=== PATIENT | female | born 1995 | race Caucasian/White ===

== ENCOUNTER 2021-11-07 14:35 | Emergency (ER) | payer SELFPAY ==
[~2021-11-07] VITALS: Ht 158 cm; Wt 54.4 kg
[2021-11-07 16:05] LABS: BASOPHILS % (AUTO) 1 % (0-10); EOSINOPHILS % (AUTO) 0 % (0-10); HEMATOCRIT 37 % (35-52); HEMOGLOBIN 13.2 g/dL (11.5-16.0); LYMPHOCYTES # (AUTO) 2.8 10^3/uL (1.0-4.0); LYMPHOCYTES % (AUTO) 32 % (12-44); MEAN CORPUSCULAR HEMOGLOBIN 32 pg (25-34); MEAN CORPUSCULAR HGB CONC 35 g/dL (32-36); MEAN CORPUSCULAR VOLUME 91 fL (80-99); MEAN PLATELET VOLUME 10.3 fL (9.0-12.2); MONOCYTES # (AUTO) 0.6 10^3/uL (0.0-1.0); MONOCYTES % (AUTO) 7 % (0-12); NEUTROPHILS # (AUTO) 5.2 10^3/uL (1.8-7.8); NEUTROPHILS % (AUTO) 60 % (42-75); PLATELET COUNT 276 10^3/uL (130-400); WHITE BLOOD COUNT 8.7 10^3/uL (4.3-11.0)
[2021-11-07 16:10] LABS: BILIRUBIN,URINE NEGATIVE (NEGATIVE); CLARITY,URINE CLEAR; COLOR,URINE YELLOW; GLUCOSE, URINE (UA) NEGATIVE (NEGATIVE); KETONES,URINE NEGATIVE (NEGATIVE); LEUKOCYTE ESTERASE ,URINE NEGATIVE (NEGATIVE); NITRITE,URINE NEGATIVE (NEGATIVE); PROTEIN,URINE NEGATIVE (NEGATIVE)
[2021-11-07 16:12] LABS: ALBUMIN 3.8 GM/DL (3.2-4.5); POTASSIUM 3.8 MMOL/L (3.6-5.0)
[2021-11-07 16:14] LABS: CALCIUM 9.1 MG/DL (8.5-10.1)
[2021-11-07 16:15] LABS: TOTAL PROTEIN 7.7 GM/DL (6.4-8.2)
[2021-11-07 16:17] LABS: BILIRUBIN,TOTAL 0.3 MG/DL (0.1-1.0)
[2021-11-07 16:19] LABS: CREATININE SERUM 0.61 MG/DL (0.60-1.30)
[2021-11-07 16:19] LABS: BACTERIA,URINE MODERATE /HPF; RBC,URINE 0-2 /HPF; WBC,URINE 0-2 /HPF
--- NOTE | 2021-11-07 16:22 | ED Abdominal Pain ---
General Chief Complaint: Abdominal/GI Problems Stated Complaint: STOMACH PAIN Nursing Triage Note: c/o right sided abdominal pain. states she is , due date is unknown, she states she has not been told yet. lamp was september 09. Source of Information: Patient Exam Limitations: Physical Impairments History of Present Illness Date Seen by Provider: Nov 07, 2021 Time Seen by Provider: 16:20 Initial Comments Patient is a 26-year-old female presents the ED with upper abdominal pain. Upper abdominal pain over the past 3 days described as sharp. Located in her up per abdomen radiates around to the right side of her abdomen. No worsening pain with eating. Has been vomiting for several days. Has been taking Unisom and B6. She states her last menstrual cycle was September 09. She is currently G1, P1. She denies of any dysuria, hematuria, vaginal bleeding or vaginal discharge. She been having some vomiting associated with the pain. No history of previous abdominal surgery. She denies chest pain, shortness of breath, headache, dizziness, visual changes. Allergies and Home Medications Allergies Coded Allergies: No Known Drug Allergies (Unverified , 11/07/21) Patient Home Medication List Home Medication List Reviewed: Yes Metoclopramide HCl (Reglan) 10 Mg Tablet, 10 MG PO Q6H PRN for NAUSEA-1ST LINE Prescribed by: LOUIE SMITH on 11/07/211927 Review of Systems Review of Systems Constitutional: No chills, No diaphoresis, No malaise, No weakness EENTM: No Blurred Vision, No Eye Pain Cardiovascular: Denies Chest Pain, Denies Edema, Denies Irregular Heart Rate Gastrointestinal: Abdominal Pain, Nausea, Vomiting Genitourinary: Denies Burning, Denies Discharge Musculoskeletal: No back pain, No joint pain Skin: No change in color, No change in hair/nails Psychiatric/Neurological: Denies Anxiety, Denies Depressed All Other Systems Reviewed Negative Unless Noted: Yes Past Kmejble-Bobkob-Khlgcc Hx Patient Social History Tobacco Use?: No Use of E-Cig and/or Vaping dev: No Substance use?: No Alcohol Use?: No Pt feels they are or have been: No Immunizations Up To Date Influenza Vaccine Up-to-Date: No; Not Current Past Medical History Last Menstrual Period: Sep 09, 2021 Physical Exam Vital Signs Vital Signs - First Documented 11/07/21 15:29 Temp 36.5 Pulse 87 Resp 18 B/P (MAP) 110/79 (89) Pulse Ox 100 Capillary Refill : Less Than 3 Seconds Height/Weight/BMI Height: '" Weight: lbs. oz. kg; 21.00 BMI Method: General Appearance: WD/WN, no apparent distress HEENT: PERRL/EOMI, normal ENT inspection, TMs normal Neck: non-tender, full range of motion, supple, normal inspection Respiratory: chest non-tender, lungs clear, normal breath sounds Cardiovascular: regular rate, rhythm, no edema, no gallop, no JVD Gastrointestinal: normal bowel sounds, soft, no organomegaly, other (Epigastric tenderness on palpation. Normal bowel sounds throughout. No rebound or guarding.) Extremities: normal range of motion, non-tender, normal inspection, no pedal edema Back: normal inspection, no CVA tenderness, no vertebral tenderness Pelvic: normal external exam, normal adnexa, no cerv. 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, no motor/sensory deficits, alert, normal mood/affect, oriented x 3 Skin: normal color, warm/dry Progress/Results/Core Measures Results/Orders Lab Results Laboratory Tests Test 11/07/21 15:55 11/07/21 16:00 Range/Units White Blood Count 8.7 4.3-11.0 10^3/uL Red Blood Count 4.13 3.80-5.11 10^6/uL Hemoglobin 13.2 11.5-16.0 g/dL Hematocrit 37 35-52 % Mean Corpuscular Volume 91 80-99 fL Mean Corpuscular Hemoglobin 32 25-34 pg Mean Corpuscular Hemoglobin Concent 35 32-36 g/dL Red Cell Distribution Width 12.2 10.0-14.5 % Platelet Count 276 130-400 10^3/uL Mean Platelet Volume 10.3 9.0-12.2 fL Immature Granulocyte % (Auto) 0 % Neutrophils (%) (Auto) 60 42-75 % Lymphocytes (%) (Auto) 32 12-44 % Monocytes (%) (Auto) 7 0-12 % Eosinophils (%) (Auto) 0 0-10 % Basophils (%) (Auto) 1 0-10 % Neutrophils # (Auto) 5.2 1.8-7.8 10^3/uL Lymphocytes # (Auto) 2.8 1.0-4.0 10^3/uL Monocytes # (Auto) 0.6 0.0-1.0 10^3/uL Eosinophils # (Auto) 0.0 0.0-0.3 10^3/uL Basophils # (Auto) 0.0 0.0-0.1 10^3/uL Immature Granulocyte # (Auto) 0.0 0.0-0.1 10^3/uL Sodium Level 136 135-145 MMOL/L Potassium Level 3.8 3.6-5.0 MMOL/L Chloride Level 104 98-107 MMOL/L Carbon Dioxide Level 21 21-32 MMOL/L Anion Gap 11 5-14 MMOL/L Blood Urea Nitrogen 5 L 7-18 MG/DL Creatinine 0.61 0.60-1.30 MG/DL Estimat Glomerular Filtration Rate 126 BUN/Creatinine Ratio 8 Glucose Level 91 70-105 MG/DL Calcium Level 9.1 8.5-10.1 MG/DL Corrected Calcium 9.3 8.5-10.1 MG/DL Total Bilirubin 0.3 0.1-1.0 MG/DL Aspartate Amino Transf (AST/SGOT) 25 5-34 U/L Alanine Aminotransferase (ALT/SGPT) 68 H 0-55 U/L Alkaline Phosphatase 64 40-136 U/L Total Protein 7.7 6.4-8.2 GM/DL Albumin 3.8 3.2-4.5 GM/DL Lipase 29 8-78 U/L Human Chorionic Gonadotropin, Quant [id number] H <5 MIU/ML Urine Color YELLOW Urine Clarity CLEAR Urine pH 6.0 5-9 Urine Specific [place] 1.025 H 1.016-1.022 Urine Protein NEGATIVE NEGATIVE Urine Glucose (UA) NEGATIVE NEGATIVE Urine Ketones NEGATIVE NEGATIVE Urine Nitrite NEGATIVE NEGATIVE Urine Bilirubin NEGATIVE NEGATIVE Urine Urobilinogen 1.0 < = 1.0 MG/DL Urine Leukocyte Esterase NEGATIVE NEGATIVE Urine RBC (Auto) NEGATIVE NEGATIVE Urine RBC 0-2 /HPF Urine WBC 0-2 /HPF Urine Squamous Epithelial Cells 2-5 /HPF Urine Renal Epithelial Cells NONE /HPF Urine Crystals NONE /LPF Urine Bacteria MODERATE H /HPF Urine Casts NONE /LPF Urine Mucus NEGATIVE /LPF Urine Culture Indicated YES Urine Test POSITIVE NEGATIVE My Orders Orders - RICH MCNEILL Ua Culture If Indicated (11/07/21 14:53) Hcg,Qualitative Urine (11/07/21 14:53) Cbc With Automated Diff (11/07/21 15:54) Comprehensive Metabolic Panel (11/07/21 15:54) Lipase (11/07/21 15:54) Hcg,Quantitative (11/07/21 15:54) Abo Rh Type (11/07/21 15:54) Urine Culture (11/07/21 16:00) Us Ob Single Fetus<14 [id number] (11/07/21 17:05) Vital Signs/I&O 11/07/21 11/07/21 15:29 19:19 Temp 36.5 Pulse 87 72 Resp 18 18 B/P (MAP) 110/79 (89) 114/67 Pulse Ox 100 100 Blood Pressure Mean: 89 Departure Communication (PCP) Patient is G1, P1 presents ED with abdominal pain. Last menstrual cycle was September 09. Patient has not established with ENGINEERING MODEL MAKER. Denies having a ultrasound. She presents with upper abdominal pain right side abdominal pain. No urinary symptoms, vaginal bleeding. Refused pelvic exam. She is not concern for sexual transmitted infection. Currently sexually active with 1 partner. Urinalysis was negative for infection but was positive for . Beta quant near 138,000. Patient with a normal white blood count, liver enzymes, pancreatic enzymes. Patient is normotensive. She is not diabetic. No known medical problems. Has been taking B6 and Unisom for nausea and vomiting that was prescribed from the clinic. She has had vomiting throughout the . Pain over the past 3 days. Denies chest pain, shortness of breath. She is not tachycardic or hypoxic. Due to no previous ultrasound and elevated beta quant rule out potential ectopic . Ultrasound did show intrauterine 8 weeks. No evidence of acute abnormality. Pain appears to be more upper abdomen on palpation. Due to normal white blood count and liver enzymes would not suspect acute cholecystitis. May have some biliary colic versus gastritis versus GERD. She does report some burning sensation to the chest. Discussed Tums. I discussed diet changes. She is requesting a different nausea medication will discharge with Reglan. Provided ENGINEERING MODEL MAKER follow-up. Blood type Rh+. Return precaution were discussed with patient. She had no current pain at discharge. Return precautions were discussed with patient. Difficulty obtaining history secondary to the language barrier. Academic Computing Director was used but was difficult to obtain information regarding patient's history and current symptoms Impression Primary Impression: Abdominal pain Additional Impression: Disposition: 01 HOME, SELF-CARE Condition: Stable Departure-Patient Inst. Decision time for Depature: 19:07 Referrals: ELIER CADENA DO Patient Instructions: Care Add. Discharge Instructions: Recommend following up with ENGINEERING MODEL MAKER. May consider recommend Tums. If any worsening symptoms return back to ED for further evaluation All discharge instructions reviewed with patient and/or family. Voiced understanding. Scripts Metoclopramide HCl (Reglan) 10 Mg Tablet 10 MG PO Q6H PRN for NAUSEA-1ST LINE, #8 TAB Prov: RICH MCNEILL 11/07/21 RICH MCNEILL Nov 07, 2021 16:22
--- NOTE | 2021-11-07 18:50 | Diagnostic Imaging Report ---
PROCEDURE: US OB single fetus <14 wks. TECHNIQUE: Multiple real-time grayscale images were obtained over the gravid uterus in various projections. INDICATION: Pelvic pain. FINDINGS: There is a single living intrauterine . Embryo crown-rump length is 2.2 cm corresponding to gestational age of 8 weeks and 6 days. heartbeat was recorded at 167 bpm. Placenta is anterior. Amniotic fluid volume is normal. Ovaries appear normal. There are no pathologic masses or fluid collections in the adnexa. There is no free fluid. IMPRESSION: Single living intrauterine with estimated gestational age of 8 weeks and 6 days +/- 6 days. Dictated by: Dictated on workstation # [id number]
[2021-11-07 19:19] VITALS: BP 114/67
[2021-11-07] MEDS ORDERED: METO-310 PO (19:28)
== END 2021-11-07 19:31 | disposition home or self-care (01) ==
LOC: ER 14:39
DX: O26.891 Other specified pregnancy related conditions, first trimester (principal); R10.13 Epigastric pain; Z3A.08 8 weeks gestation of pregnancy
CPT/HCPCS: 36415; 76801; 80053; 81000; 83690; 84702; 84703; 85025; 86900; 86901; 87088

== ENCOUNTER 2022-01-14 09:27 | Emergency (ER) | payer OTHER ==
[~2022-01-14] VITALS: Ht 157.5 cm; Wt 60.7 kg
[~2022-01-14 09:27] MED LIST: METO-310 PO
[2022-01-14 10:14] LABS: BILIRUBIN,URINE NEGATIVE (NEGATIVE); CLARITY,URINE CLEAR; COLOR,URINE ORANGE; GLUCOSE, URINE (UA) NEGATIVE (NEGATIVE); KETONES,URINE NEGATIVE (NEGATIVE); LEUKOCYTE ESTERASE ,URINE NEGATIVE (NEGATIVE); NITRITE,URINE NEGATIVE (NEGATIVE); PROTEIN,URINE NEGATIVE (NEGATIVE)
[2022-01-14 10:33] LABS: BACTERIA,URINE MODERATE /HPF; RBC,URINE 0-2 /HPF; SQUAMOUS EPITHELIAL CELL,UR >50 /HPF; WBC,URINE 0-2 /HPF
[2022-01-14] MEDS ORDERED: fentaNYL INJ 100 MCG/2 ML AMP IVP ONE (13:00)
[2022-01-14 13:05] LABS: BASOPHILS % (AUTO) 0 % (0-10); EOSINOPHILS # (AUTO) 0.1 10^3/uL (0.0-0.3); EOSINOPHILS % (AUTO) 1 % (0-10); HEMATOCRIT 35 % (35-52); LYMPHOCYTES % (AUTO) 22 % (12-44); MEAN CORPUSCULAR HEMOGLOBIN 32 pg (25-34); MEAN CORPUSCULAR HGB CONC 34 g/dL (32-36); MEAN CORPUSCULAR VOLUME 93 fL (80-99); MEAN PLATELET VOLUME 11.1 fL (9.0-12.2); MONOCYTES # (AUTO) 0.7 10^3/uL (0.0-1.0); MONOCYTES % (AUTO) 8 % (0-12); NEUTROPHILS # (AUTO) 6.2 10^3/uL (1.8-7.8); NEUTROPHILS % (AUTO) 69 % (42-75); PLATELET COUNT 338 10^3/uL (130-400)
[2022-01-14 13:13] LABS: ALBUMIN 3.5 GM/DL (3.2-4.5); BILIRUBIN,TOTAL 0.3 MG/DL (0.1-1.0); CALCIUM 9.2 MG/DL (8.5-10.1); CREATININE SERUM 0.6 MG/DL (0.60-1.30); POTASSIUM 3.6 MMOL/L (3.6-5.0); TOTAL PROTEIN 7.2 GM/DL (6.4-8.2)
--- NOTE | 2022-01-14 14:05 | ED Abdominal Pain ---
General Chief Complaint: Abdominal/GI Problems Stated Complaint: ABD PAIN 18 WKS PREG Nursing Triage Note: Pt is 17 weeks gestation w/ low abd/pelvic pain since 0630 w/ urinary urgency and feels like she can't go very much at a time. Source of Information: Patient, Advertising Sales Agent Exam Limitations: No Limitations History of Present Illness Date Seen by Provider: Jan 14, 2022 Time Seen by Provider: 10:09 Initial Comments This 26-year-old young lady is a 1 para 0 at 19 weeks and 1 day gestational age. She presents to the emergency room primarily complaining of left lower quadrant pain and back pain. Swedish is her primary language and the chief crna line is used for the communication. She complains mainly of lower abdominal pain for the past couple of days but is actually more tender in the right upper quadrant and epigastrium. She reports movement today and heart tones were reassuring by Doppler in the 150s per nursing staff. Dr. Wilder provides her care at the [facility] clinic. She denies any vaginal discharge, bleeding, or pain. She denies constipation or diarrhea. She has no vomiting but has had a little nausea. She does not state any urinary complaints to this provider. Allergies and Home Medications Allergies Coded Allergies: No Known Drug Allergies (Unverified , 11/07/21) Patient Home Medication List Home Medication List Reviewed: Yes Metoclopramide HCl (Reglan) 10 Mg Tablet, 10 MG PO Q6H PRN for NAUSEA-1ST LINE Prescribed by: LOUIE SMITH on 11/07/211927 Ondansetron (Ondansetron Odt) 4 Mg Tab.rapdis, 4 MG SL Q4H PRN for NAUSEA/VOMITING Prescribed by: CLEMENTE HERNANDEZ on 01/14/22 1414 Review of Systems Review of Systems Constitutional: no symptoms reported EENTM: No Symptoms Reported Respiratory: No Symptoms Reported Cardiovascular: No Symptoms Reported Gastrointestinal: See HPI Genitourinary: See HPI Musculoskeletal: no symptoms reported Skin: no symptoms reported Psychiatric/Neurological: No Symptoms Reported Endocrine: No Symptoms Reported Hematologic/Lymphatic: No Symptoms Reported Past Amgbton-Hrunjt-Mpcupu Hx Patient Social History Tobacco Use?: No Use of E-Cig and/or Vaping dev: No Substance use?: No Alcohol Use?: No Pt feels they are or have been: No Past Medical History Surgeries: No Respiratory: No Cardiac: No Neurological: No : Yes Expected Date of Delivery: Jun 19, 2022 Last Menstrual Period: Sep 10, 2021 Reproductive Disorders: No Genitourinary: No Gastrointestinal: No Musculoskeletal: No Endocrine: No HEENT: No Cancer: No Psychosocial: No Physical Exam Vital Signs Vital Signs - First Documented 01/14/22 09:41 Temp 36.6 Pulse 94 Resp 22 B/P (MAP) 102/63 (76) Pulse Ox 99 O2 Delivery Room Air Capillary Refill : Less Than 3 Seconds Height/Weight/BMI Height: '" Weight: lbs. oz. kg; 24.00 BMI Method: General Appearance: WD/WN, no apparent distress HEENT: PERRL/EOMI, normal ENT inspection Neck: normal inspection Respiratory: lungs clear, normal breath sounds, no respiratory distress Cardiovascular: regular rate, rhythm, no edema, no murmur Gastrointestinal: normal bowel sounds, soft, tenderness (Minimal tenderness in the suprapubic region. Fundus nontender. 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, no motor/sensory deficits, alert, normal mood/affect, oriented x 3 Skin: normal color, warm/dry Progress/Results/Core Measures Results/Orders Lab Results Laboratory Tests Test 01/14/22 09:45 01/14/22 10:00 Range/Units Urine Color ORANGE Urine Clarity CLEAR Urine pH 6.0 5-9 Urine Specific [place] >=1.030 1.016-1.022 Urine Protein NEGATIVE NEGATIVE Urine Glucose (UA) NEGATIVE NEGATIVE Urine Ketones NEGATIVE NEGATIVE Urine Nitrite NEGATIVE NEGATIVE Urine Bilirubin NEGATIVE NEGATIVE Urine Urobilinogen 0.2 < = 1.0 MG/DL Urine Leukocyte Esterase NEGATIVE NEGATIVE Urine RBC (Auto) NEGATIVE NEGATIVE Urine RBC 0-2 /HPF Urine WBC 0-2 /HPF Urine Squamous Epithelial Cells >50 H /HPF Urine Crystals NONE /LPF Urine Bacteria MODERATE H /HPF Urine Casts NONE /LPF Urine Mucus MODERATE H /LPF Urine Culture Indicated YES White Blood Count 9.0 4.3-11.0 10^3/uL Red Blood Count 3.79 L 3.80-5.11 10^6/uL Hemoglobin 12.0 11.5-16.0 g/dL Hematocrit 35 35-52 % Mean Corpuscular Volume 93 80-99 fL Mean Corpuscular Hemoglobin 32 25-34 pg Mean Corpuscular Hemoglobin Concent 34 32-36 g/dL Red Cell Distribution Width 13.4 10.0-14.5 % Platelet Count 338 130-400 10^3/uL Mean Platelet Volume 11.1 9.0-12.2 fL Immature Granulocyte % (Auto) 1 % Neutrophils (%) (Auto) 69 42-75 % Lymphocytes (%) (Auto) 22 12-44 % Monocytes (%) (Auto) 8 0-12 % Eosinophils (%) (Auto) 1 0-10 % Basophils (%) (Auto) 0 0-10 % Neutrophils # (Auto) 6.2 1.8-7.8 10^3/uL Lymphocytes # (Auto) 2.0 1.0-4.0 10^3/uL Monocytes # (Auto) 0.7 0.0-1.0 10^3/uL Eosinophils # (Auto) 0.1 0.0-0.3 10^3/uL Basophils # (Auto) 0.0 0.0-0.1 10^3/uL Immature Granulocyte # (Auto) 0.1 0.0-0.1 10^3/uL Sodium Level 135 135-145 MMOL/L Potassium Level 3.6 3.6-5.0 MMOL/L Chloride Level 105 98-107 MMOL/L Carbon Dioxide Level 20 L 21-32 MMOL/L Anion Gap 10 5-14 MMOL/L Blood Urea Nitrogen 3 L 7-18 MG/DL Creatinine 0.60 0.60-1.30 MG/DL Estimat Glomerular Filtration Rate 127 BUN/Creatinine Ratio 5 Glucose Level 86 70-105 MG/DL Calcium Level 9.2 8.5-10.1 MG/DL Corrected Calcium 9.6 8.5-10.1 MG/DL Total Bilirubin 0.3 0.1-1.0 MG/DL Aspartate Amino Transf (AST/SGOT) 19 5-34 U/L Alanine Aminotransferase (ALT/SGPT) 25 0-55 U/L Alkaline Phosphatase 66 40-136 U/L C-Reactive Protein High Sensitivity 0.82 H 0.00-0.50 MG/DL Total Protein 7.2 6.4-8.2 GM/DL Albumin 3.5 3.2-4.5 GM/DL Lipase 17 8-78 U/L Micro Results Microbiology 01/14/22 Urine Culture - Final, Complete Mixed Bacterial Angela My Orders Orders - CLEMENTE DAO MD Ua Culture If Indicated (01/14/22 10:09) Urine Culture (01/14/22 09:45) Cbc With Automated Diff (01/14/22 12:53) Comprehensive Metabolic Panel (01/14/22 12:53) Hs C Reactive Protein (01/14/22 12:53) Lipase (01/14/22 12:53) Fentanyl Inj (Sublimaze Injection) (01/14/22 13:00) Us Gallbladder [id number] (01/14/22 ) Us Ob Preg Late(14-40wks)[id number] (01/14/22 12:53) Medications Given in ED Vital Signs/I&O 01/14/22 01/14/22 01/14/22 09:41 10:45 14:45 Temp 36.6 Pulse 94 83 107 Resp 22 18 B/P (MAP) 102/63 (76) 97/67 103/58 Pulse Ox 99 99 98 O2 Delivery Room Air Room Air Room Air Blood Pressure Mean: 77 Progress Progress Note : Progress Note Pain was already improving prior to ultrasound. A very small dose of fentanyl was given for pain control during ultrasound. Ultrasound demonstrated gallbladder sludge and stones without definite acute cholecystitis. Vital signs and labs did not correlate with acute cholecystitis. Case was discussed with Ty Flores and patient has been referred to him in the clinic. I discussed the instructions via chief crna and answered questions. Obstetrical ultrasound was reassuring with no acute pathology identified. See discharge instructions for further discussion. Symptom management was also discussed with Dr. Wilder. He preferred the patient adhere to Tylenol only for pain control at this time. Diagnostic Imaging Diagonstic Imaging: Ultrasound Plain Films/CT/US/NM/MRI: abdomen Comments Gallbladder ultrasound discussed with the sand technician. There was no definite acute cholecystitis but gallstones and sludge were noted. Wall thickening did not meet criteria for cholecystitis. See report below: NAME: ALANIZSAL GRIFFITHS [facility] REC#: [id number] PT STATUS: DEP ER : 1995 PHYSICIAN: CLEMENTE DAO MD ADMIT DATE: 01/14/22/ER Signed Date of Exam:01/14/22 US GALLBLADDER [id number] PROCEDURE: US Gallbladder. TECHNIQUE: Multiple real-time grayscale images were obtained over the right upper quadrant in various projections. INDICATION: Abdominal pain. FINDINGS: Liver is normal in size at 14 cm. The portal vein is patent and shows normal direction of flow. No discrete liver mass is identified. Echogenic foci within the gallbladder are noted with shadowing, suggestive of stones. Gallbladder wall is borderline in thickness at 3 mm. No pericholecystic fluid is identified. Pancreas is obscured. Aorta is nonaneurysmal. IVC is patent. Right kidney is without calculi or hydronephrosis. IMPRESSION: Cholelithiasis with borderline gallbladder wall thickening. Acute cholecystitis cannot be entirely excluded. If there is concern for acute cholecystitis, HIDA scan may be useful for further evaluation. Dictated by: Dictated on workstation # [id number] Dict: 01/14/22 1445 Trans: 01/14/22 1555 [id number] Interpreted by: ALEIDA COCHRAN MD Electronically signed by: ALEIDA COCHRAN MD 01/14/22 1555 Diagonstic Imaging: Ultrasound Plain Films/CT/US/NM/MRI: pelvis Comments Obstetrical ultrasound discussed with provider. See report below: NAME: SAL MARQUEZ REC#: [id number] PT STATUS: DEP ER : 1995 PHYSICIAN: CLEMENTE DAO MD ADMIT DATE: 01/14/22/ER Signed Date of Exam:01/14/22 US OB PREG LATE(14-40WKS)[id number] INDICATION: Abdominal pain, 18 weeks . TECHNIQUE: Multiple real-time grayscale images were obtained over the gravid uterus. COMPARISON: None. FINDINGS: There is a gonzalez viable IUP in cephalic position with heart tones at 146 BPM. The measurements correlate with an average age 19 weeks 1 day. Sonographic date of confinement is 06/09/2022. Amniotic fluid volume is normal. The placenta is anterior. There is no abruption or previa. The caudal tip of the placenta is by 4.8 cm from the closed os. Cervix was nondilated and measured 3.2 cm in length. IMPRESSION: Gonzalez viable IUP with no pathological finding identified. Biometrical measurements are as follows: Biparietal 4.36 cm, age 19 weeks 2 days. Head circumference 16.04 cm, age 19 weeks 0 days. Abdominal circumference 13.30 cm, age 18 weeks 6 days. Femur length 2.98 cm, age 19 weeks 2 days. Sonographic estimate age: 19 weeks 1 days. Sonographic estimated date of delivery: 06/09/2022. Estimated Weight: 267 gm (+/- 39 gm). LMP percentile: 70%. heart rate: 146 beats per minute. number: 1 of 1. Dictated by: Dictated on workstation # [id number] Dict: 01/14/22 1530 Trans: 01/14/22 1649 [id number] Interpreted by: MARIA VICTORIA YING Electronically signed by: MARIA VICTORIA YING 01/14/22 0009 Departure Impression Primary Impression: Gallstones Additional Impressions: Generalized abdominal pain Qualified Codes: Z3A.19 - 19 weeks gestation of Disposition: 01 HOME, SELF-CARE Condition: Stable Departure-Patient Inst. Referrals: [facility][1]/QUENTIN STERLING DO NO,LOCAL PHYSICIAN (PCP) Primary Care Physician Patient Instructions: Gallstones Add. Discharge Instructions: You have gallstones and sludge in your gallbladder. This is likely causing most of your pain. Eating a diet low in fats, oils, and dairy is very important to control your symptoms. Hopefully you will not need to have surgery for your gallbladder during . Please see Dr. Flores (general surgeon) to talk about options and a plan for treating your gallstones. Dr. Flores's contact information is below. Please call his office to schedule an appointment as soon as possible. Tell them this is a follow-up from the emergency room. You may use Zofran (ondansetron) as prescribed for nausea if needed. Use Tylenol (acetaminophen) up to 1000 mg every 6 hours as needed for pain. Return to the emergency room if you have worsening symptoms despite following these instructions. All discharge instructions reviewed with patient and/or family. Voiced understanding. Scripts Ondansetron (Ondansetron Odt) 4 Mg Tab.rapdis 4 MG SL Q4H PRN for NAUSEA/VOMITING, #10 TAB Prov: CLEMENTE DAO MD 01/14/22 Copy Copies To 1: QUENTIN FLORES DO Copies To 2: [facility][1]/CLEMENTE BOBBY MD Jan 14, 2022 14:05
[2022-01-14] MEDS ORDERED: ONDA4TAB11 SL (14:14)
[2022-01-14 14:45] VITALS: BP 103/58
--- NOTE | 2022-01-14 14:51 | Diagnostic Imaging Report ---
PROCEDURE: US Gallbladder. TECHNIQUE: Multiple real-time grayscale images were obtained over the right upper quadrant in various projections. INDICATION: Abdominal pain. FINDINGS: Liver is normal in size at 14 cm. The portal vein is patent and shows normal direction of flow. No discrete liver mass is identified. Echogenic foci within the gallbladder are noted with shadowing, suggestive of stones. Gallbladder wall is borderline in thickness at 3 mm. No pericholecystic fluid is identified. Pancreas is obscured. Aorta is nonaneurysmal. IVC is patent. Right kidney is without calculi or hydronephrosis. IMPRESSION: Cholelithiasis with borderline gallbladder wall thickening. Acute cholecystitis cannot be entirely excluded. If there is concern for acute cholecystitis, HIDA scan may be useful for further evaluation. Dictated by: Dictated on workstation # [id number]
--- NOTE | 2022-01-14 15:37 | Diagnostic Imaging Report ---
INDICATION: Abdominal pain, 18 weeks . TECHNIQUE: Multiple real-time grayscale images were obtained over the gravid uterus. COMPARISON: None. FINDINGS: There is a cabrera viable IUP in cephalic position with heart tones at 146 BPM. The measurements correlate with an average age 19 weeks 1 day. Sonographic date of confinement is 06/09/2022. Amniotic fluid volume is normal. The placenta is anterior. There is no abruption or previa. The caudal tip of the placenta is by 4.8 cm from the closed os. Cervix was nondilated and measured 3.2 cm in length. IMPRESSION: Cabrera viable IUP with no pathological finding identified. Biometrical measurements are as follows: Biparietal 4.36 cm, age 19 weeks 2 days. Head circumference 16.04 cm, age 19 weeks 0 days. Abdominal circumference 13.30 cm, age 18 weeks 6 days. Femur length 2.98 cm, age 19 weeks 2 days. Sonographic estimate age: 19 weeks 1 days. Sonographic estimated date of delivery: 06/09/2022. Estimated Weight: 267 gm (+/- 39 gm). LMP percentile: 70%. heart rate: 146 beats per minute. number: 1 of 1. Dictated by: Dictated on workstation # [id number]
== END 2022-01-14 14:45 | disposition home or self-care (01) ==
LOC: EDUNIT# 09:27 → ER 09:29
DX: O99.612 Diseases of the digestive system complicating pregnancy, second trimester (principal); K80.80 Other cholelithiasis without obstruction; Z28.310 Unvaccinated for COVID-19; Z3A.19 19 weeks gestation of pregnancy
CPT/HCPCS: 36415; 76705; 76805; 80053; 81000; 83690; 85025; 86141; 87088

== ENCOUNTER 2022-06-12 12:15 | Outpatient (CLI) | payer OTHER ==
[~2022-06-12 12:15] MED LIST changes: +ONDA4TAB11 SL
[2022-06-12] MEDS ORDERED: PREN-142 PO (12:58)
[2022-06-12 13:02] VITALS: BP 123/77
[2022-06-12 13:35] LABS: BILIRUBIN,URINE NEGATIVE (NEGATIVE); CLARITY,URINE CLEAR; COLOR,URINE ORANGE; GLUCOSE, URINE (UA) NEGATIVE (NEGATIVE); KETONES,URINE NEGATIVE (NEGATIVE); LEUKOCYTE ESTERASE ,URINE NEGATIVE (NEGATIVE); NITRITE,URINE NEGATIVE (NEGATIVE); PH,URINE 6.5 (5-9); PROTEIN,URINE 1+ (NEGATIVE)
[2022-06-12 13:55] LABS: BACTERIA,URINE FEW /HPF; WBC,URINE 0-2 /HPF
--- NOTE | 2022-06-13 08:10 | Physician Query-Final Dx ---
SCOT,06/13/22 0810: Clinic Account Progress/Dx Physician Query: Please give diagnosis Please include # weeks gestation Date of Service Jun 12, 2022 at 12:15 GAGE LUX DO 06/13/22 0847: Clinic Account Progress/Dx DIAGNOSIS: Diagnosis 39 week GA contractions, not in active labor SCOT,JunJun 13, 2022 08:10 GAGE LUX DO Jun 13, 2022 08:47
== END 2022-06-12 16:10 | disposition home or self-care (01) ==
LOC: WSo 12:15 → LDRP 12:16 → WSo 16:10
PROVIDERS: ATTEND Family Medicine
DX: O62.9 Abnormality of forces of labor, unspecified (principal); Z3A.39 39 weeks gestation of pregnancy
CPT/HCPCS: 81000; 87088; 99213

== ENCOUNTER 2022-06-13 06:04 | Inpatient (IN) | payer OTHER ==
[2022-06-13] VITALS (55 sets, daily range): BP systolic 89–142; BP diastolic 51–102
[~2022-06-13] VITALS: Ht 160 cm; Wt 74.0 kg
[~2022-06-13 06:04] MED LIST changes: +PREN-142 PO
[2022-06-13] MEDS ORDERED: D5 LR IV SOLUTION 1,000 ML IV ONE (06:43)
[2022-06-13] MEDS: D5 LR IV SOLUTION 1,000 ML IV SCH ×2 (06:50→14:20)
[2022-06-13 06:51] LABS: BILIRUBIN,URINE NEGATIVE (NEGATIVE); CLARITY,URINE CLOUDY; COLOR,URINE YELLOW; GLUCOSE, URINE (UA) NEGATIVE (NEGATIVE); KETONES,URINE NEGATIVE (NEGATIVE); LEUKOCYTE ESTERASE ,URINE NEGATIVE (NEGATIVE); NITRITE,URINE NEGATIVE (NEGATIVE); PH,URINE 6.5 (5-9); PROTEIN,URINE 1+ (NEGATIVE)
[2022-06-13 07:10] LABS: RBC,URINE >100 /HPF
[2022-06-13 07:11] LABS: BACTERIA,URINE TRACE /HPF; WBC,URINE 0-2 /HPF
[2022-06-13 07:25] LABS: BASOPHILS % (AUTO) 0 % (0-10); EOSINOPHILS % (AUTO) 0 % (0-10); HEMATOCRIT 38 % (35-52); LYMPHOCYTES # (AUTO) 2.2 10^3/uL (1.0-4.0); LYMPHOCYTES % (AUTO) 29 % (12-44); MEAN CORPUSCULAR HEMOGLOBIN 31 pg (25-34); MEAN CORPUSCULAR HGB CONC 35 g/dL (32-36); MEAN CORPUSCULAR VOLUME 90 fL (80-99); MEAN PLATELET VOLUME 12.5 fL (9.0-12.2); MONOCYTES # (AUTO) 0.6 10^3/uL (0.0-1.0); MONOCYTES % (AUTO) 7 % (0-12); NEUTROPHILS # (AUTO) 4.8 10^3/uL (1.8-7.8); NEUTROPHILS % (AUTO) 63 % (42-75); PLATELET COUNT 261 10^3/uL (130-400); WHITE BLOOD COUNT 7.7 10^3/uL (4.3-11.0)
[2022-06-13] MEDS ORDERED: fentaNYL 2 mcg/ml BUPIVA 0.125 100 ML ONE (07:28)
[2022-06-13] MEDS ORDERED: MINERAL OIL 30 ML UDC TOP PRN (07:30)
[2022-06-13] MEDS ORDERED: LIDOCAINE PF 2% 5 ML (XYLOCAINE) VIAL ONE (08:12)
[2022-06-13] MEDS ORDERED: fentaNYL INJ 100 MCG/2 ML AMP ONE (08:12)
--- NOTE | 2022-06-13 08:15 | History & Physical-OB ---
OB - Chief Complaint & HPI Date/Time Date of Admission: Date of Admission: Jun 13, 2022 at 06:43 Date seen by a Provider: Jun 13, 2022 Time Seen by a Provider: 07:10 Chief Complaint/History OB-Reason for Admission/Chief: Onset of Labor Hx : 2 Hx Para: 0 Expected Date of Delivery: Jun 17, 2022 Gestational Age in Weeks: 39 Gestational Age in Days: 3 Admission Nurse Assessment Rev: Yes History of Labs GBS negative Allergies and Home Medications Allergies Coded Allergies: No Known Drug Allergies (Unverified , 11/07/21) Patient Home Medication List Home Medication List Reviewed: Yes Vit No.124/Iron/FA ( Vitamin Tablet) 27 Mg Iron-800 Mcg Tablet, 1 EACH PO, (Reported) Entered as Reported by: JESSENIA ROMERO on 06/12/22 1258 Discontinued Medications Metoclopramide HCl (Reglan) 10 Mg Tablet, 10 MG PO Q6H PRN for NAUSEA-1ST LINE Discontinued Reason: No Longer Taking Prescribed by: LOUIE SMITH on 11/07/21 1928 Ondansetron (Ondansetron Odt) 4 Mg Tab.rapdis, 4 MG SL Q4H PRN for NAUSEA/VOMITING Discontinued Reason: No Longer Taking Prescribed by: CLEMENTE HERNANDEZ on 01/14/22 1414 OB - History Hx of Present Care: Yes Ultrasounds: Normal mid trimester US Obstetrical Complications: None Medical Complications: None Patient Past Medical History no chronic medical problems Social History/Family History 2nd Hand Smoke Exposure: No Immunizations Influenza Vaccine Up-to-Date: Yes; Up-to-Date COVID19 Vaccine 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[place] OB - Admission Exam Physical Exam Vitals: Vital Signs 06/13/22 06:23 Temp 36.8 Pulse 103 Resp 20 B/P (MAP) 125/82 (96) Pulse Ox 100 O2 Delivery Room Air HEENT: Moist Membranes Heart: Rhythm Normal Lungs: Clear Abdomen: Gravid Extremities: Normal Reflexes: Normal Cervical Dilatation: 4cm Effacement: 75% Station: -3 Membranes: Intact (on admission) Short Term Variability: Present Training Representative Variability: Average (6-25) Contractions on Admission: < 5 Minutes Apart Intensity: Moderate Labs Laboratory Tests Test 06/13/22 06:15 06/13/22 06:50 Range/Units Urine Color YELLOW Urine Clarity CLOUDY Urine pH 6.5 5-9 Urine Specific [place] 1.020 1.016-1.022 Urine Protein 1+ H NEGATIVE Urine Glucose (UA) NEGATIVE NEGATIVE Urine Ketones NEGATIVE NEGATIVE Urine Nitrite NEGATIVE NEGATIVE Urine Bilirubin NEGATIVE NEGATIVE Urine Urobilinogen 0.2 < = 1.0 MG/DL Urine Leukocyte Esterase NEGATIVE NEGATIVE Urine RBC (Auto) 3+ H NEGATIVE Urine RBC >100 H /HPF Urine WBC 0-2 /HPF Urine Squamous Epithelial Cells 2-5 /HPF Urine Crystals NONE /LPF Urine Bacteria TRACE /HPF Urine Casts NONE /LPF Urine Mucus NEGATIVE /LPF Urine Culture Indicated NO White Blood Count 7.7 4.3-11.0 10^3/uL Red Blood Count 4.19 3.80-5.11 10^6/uL Hemoglobin 13.0 11.5-16.0 g/dL Hematocrit 38 35-52 % Mean Corpuscular Volume 90 80-99 fL Mean Corpuscular Hemoglobin 31 25-34 pg Mean Corpuscular Hemoglobin Concent 35 32-36 g/dL Red Cell Distribution Width 14.1 10.0-14.5 % Platelet Count 261 130-400 10^3/uL Mean Platelet Volume 12.5 H 9.0-12.2 fL Immature Granulocyte % (Auto) 0 % Neutrophils (%) (Auto) 63 42-75 % Lymphocytes (%) (Auto) 29 12-44 % Monocytes (%) (Auto) 7 0-12 % Eosinophils (%) (Auto) 0 0-10 % Basophils (%) (Auto) 0 0-10 % Neutrophils # (Auto) 4.8 1.8-7.8 10^3/uL Lymphocytes # (Auto) 2.2 1.0-4.0 10^3/uL Monocytes # (Auto) 0.6 0.0-1.0 10^3/uL Eosinophils # (Auto) 0.0 0.0-0.3 10^3/uL Basophils # (Auto) 0.0 0.0-0.1 10^3/uL Immature Granulocyte # (Auto) 0.0 0.0-0.1 10^3/uL OB - Assessment/Plan/Diagnosis Assessment Assessment: active labor Admission Dx 1. intrauterine at term 39 weeks 3 days gestation in labor Admission Status: Inpatient Order (span 2 midnights) Reason for Inpatient Admission: labor and delivery Plan Plan: Expectant Management Other Plan -she would like epidural -Pitocin if necessary DIMITRI ELLIOTT MD Jun 13, 2022 08:15
[2022-06-13] MEDS ORDERED: MEPIVACAINE (CARBOCAINE) 2% 50 ML VIAL INJ PRN (10:00)
[2022-06-13] MEDS ORDERED: OXYTOCIN PRE-MIX DRIP 500 ML IV SCH ×2 (10:00→17:15)
[2022-06-13] MEDS ORDERED: NALOXONE 0.4 MG/ML 1 ML (NARCAN) VIAL IV PRN ×3 (12:30→17:15)
[2022-06-13] MEDS ORDERED: fentaNYL 2 mcg/ml BUPIVA 0.125 100 ML EPI SCH (12:30)
[2022-06-13] MEDS ORDERED: METOCLOPRAMIDE INJ 10 MG/2 ML (REGLAN) IV PRN (12:30)
[2022-06-13] MEDS ORDERED: ONDANSETRON 4 MG/2 ML (SDV) Z0FRAN IV PRN (12:30)
[2022-06-13] MEDS ORDERED: diphenhydrAMINE 50 MG/ML INJ (BENADRYL) IV PRN (12:30)
[2022-06-13] MEDS ORDERED: LACTATED RINGERS 1,000 ML IV SCH (12:30)
[2022-06-13] MEDS ORDERED: CATHETER FLUSH 10 ML SYR IV SCH ×2 (14:00→22:00)
[2022-06-13] MEDS ORDERED: BENZOCAINE/MENTHOL (DERMOPLAST) 56 ML CAN TP PRN (17:15)
[2022-06-13] MEDS ORDERED: MEASLES,MUMPS,RUBELLA 1 EA INJ SQ ONE (17:15)
[2022-06-13] MEDS ORDERED: TETANUS,DIPTH,PERTUSS P/F (BOOSTRIX) 0.5 ML VIAL IM ONE (17:15)
[2022-06-13] MEDS ORDERED: WITCH HAZEL(TUCKS) 40 EA JAR TOP PRN (17:15)
--- NOTE | 2022-06-13 17:19 | OB Labor & Delivery Record ---
L&D History Date of Service Date of Service: Jun 13, 2022 History Expected Date of Delivery: Jun 17, 2022 Gestational Age in Weeks: 39 Hx : 2 Hx Para: 1 Complications Events: Routine care Operative Indications (Cesarea: N/A-Vaginal Delivery Intrapartal Events: None L&D Stage1 Stage One Onset of Labor - Date: Jun 13, 2022 Onset of Labor - Time: 07:10 Monitors and Tracing Monitor Mode: Internal Heart Rate: 150 Monitor Accelerations: Uniform Monitor Decelerations: None Station: -2 Care Home Variability: Average (6-10) Short Term Variability: Present Presentation: Vertex Vital Signs VS - Last 72 Hours, by Label 06/13/22 06/13/22 06/13/22 06/13/22 06:23 06:23 08:15 08:20 Temp 36.8 36.8 37.0 Pulse 103 103 114 86 Resp 20 20 18 18 B/P (MAP) 125/82 (96) 127/79 (95) 116/68 (84) Pulse Ox 100 100 99 99 O2 Delivery Room Air Room Air Room Air Room Air 06/13/22 06/13/22 06/13/22 06/13/22 08:25 08:30 08:35 08:40 Pulse 99 100 103 103 Resp 18 18 18 18 B/P (MAP) 123/73 (90) 121/60 (80) 112/60 (77) 114/60 (78) Pulse Ox 98 98 98 98 O2 Delivery Room Air Room Air Room Air Room Air 06/13/22 06/13/22 06/13/22 06/13/22 08:43 08:45 08:48 08:51 Pulse 102 92 92 86 Resp 18 18 18 18 B/P (MAP) 121/62 (81) 115/60 (78) 116/59 (78) 114/56 (75) Pulse Ox 98 98 98 99 O2 Delivery Room Air Room Air Room Air Room Air 06/13/22 06/13/22 06/13/22 06/13/22 08:54 08:57 09:00 09:05 Pulse 96 90 110 93 Resp 18 18 18 18 B/P (MAP) 114/59 (77) 122/78 (93) 122/70 (87) 123/67 (85) Pulse Ox 99 99 99 99 O2 Delivery Room Air Room Air Room Air Room Air 06/13/22 06/13/22 06/13/22 06/13/22 09:10 09:15 09:20 09:25 Pulse 92 88 93 94 Resp 18 18 18 18 B/P (MAP) 131/86 (101) 131/66 (87) 129/71 (90) 133/76 (95) Pulse Ox 98 99 98 98 O2 Delivery Room Air Room Air Room Air Room Air 06/13/22 06/13/22 06/13/22 06/13/22 09:30 09:35 09:45 10:00 Pulse 89 86 92 Resp 18 18 18 B/P (MAP) 133/81 (98) 122/69 (86) 130/73 (92) Pulse Ox 98 98 99 O2 Delivery Room Air Room Air Room Air Room Air 06/13/22 06/13/22 06/13/22 06/13/22 10:15 10:30 10:45 11:00 Pulse 114 105 108 93 Resp 18 18 18 18 B/P (MAP) 123/64 (83) 112/75 (87) 126/65 (85) 118/69 (85) Pulse Ox 99 99 99 99 O2 Delivery Room Air Room Air Room Air Room Air 06/13/22 06/13/22 06/13/22 06/13/22 11:15 11:30 11:45 12:00 Temp 37.2 Pulse 100 86 85 96 Resp 18 18 18 18 B/P (MAP) 120/68 (85) 93/51 (65) 92/55 (67) 89/53 (65) O2 Delivery Room Air Room Air Room Air Room Air 06/13/22 06/13/22 06/13/22 06/13/22 12:15 12:30 12:45 13:00 Temp 36.8 Pulse 90 84 88 109 Resp 18 18 18 18 B/P (MAP) 127/73 (91) 119/69 (86) 123/86 (98) 129/60 (83) O2 Delivery Room Air Room Air Room Air Room Air 06/13/22 06/13/22 06/13/22 13:15 13:30 13:45 Pulse 105 109 114 Resp 18 18 18 B/P (MAP) 129/78 (95) 134/76 (95) 127/74 (91) O2 Delivery Room Air Room Air Room Air Signs of Distress by FHT Signs of Distress no Rupture of Membranes Spontaneous Ruture of Membrane: No Amniotic Membrane Rupture Time: 0710 Amniotic Membrane Fluid Desc.: Clear Induction/Anesthesia Epidural Cath Placement - Time: 0819 L&D Stage2 Stage Two Stage II Date: Jun 13, 2022 Stage II Time: 15:59 Monitors and Tracing Monitor Mode: Internal Heart Rate: 150 Monitor Accelerations: Uniform Monitor Decelerations: None [place] Variability: Average (6-10) Short Term Variability: Present Position: Left Occiput Anterior Presentation: Vertex Signs of Distress by FHT Signs of Distress no Cord Descript/Complications Cord Vessel Description: 3 Vessels Delivery Type Delivery Method: Spontaneous Vaginal Anterior Shoulder: Left Episiotomy/Perineal Laceration Laceraction(s)/Extensions: Yes Episiotomy Description: Midline Sutures Used: Vicryl Condition of Infant Delivery 1 minute Comment: 8 5 minute Comment: 9 Condition of Condition of Infant: Living Exam: No Observed Abnormalities Resuscitation Resuscitation: N/A - Spontaneous Resp L&D Stage3 Stage Three Stage III Date: Jun 13, 2022 Stage III Time: 16:04 Pictocin Pitocin Administration mu/min: 4 Pitocin ml/hr: 4 Pitocin Administration Comment: 1030 pitocin increased Placenta Delivery Placenta Delivery: Spontaneous Delivery Summary Summary Estimated blood loss (mL): 300 Condition of Delivery Examined: Cervix Examined Post Hemorrhage: No Intervention Required none DIMITRI ELLIOTT MD Jun 13, 2022 17:19
[2022-06-13] MEDS ORDERED: IBUPROFEN 600 MG (MOTRIN) TAB PO ONE (17:56)
[2022-06-13] MEDS: IBUPROFEN 600 MG (MOTRIN) TAB PO SCH ×2 (17:58→23:42)
[2022-06-13] MEDS: DOCUSATE SODIUM 100 MG (COLACE) CAP PO SCH (19:39)
[2022-06-14 03:11] VITALS: BP 99/52
[2022-06-14] MEDS: IBUPROFEN 600 MG (MOTRIN) TAB PO SCH ×2 (05:41→12:08)
[2022-06-14 06:51] LABS: BASOPHILS % (AUTO) 0 % (0-10); EOSINOPHILS % (AUTO) 0 % (0-10); HEMATOCRIT 30 % (35-52); HEMOGLOBIN 10.1 g/dL (11.5-16.0); LYMPHOCYTES # (AUTO) 2.7 10^3/uL (1.0-4.0); LYMPHOCYTES % (AUTO) 25 % (12-44); MEAN CORPUSCULAR HEMOGLOBIN 31 pg (25-34); MEAN CORPUSCULAR HGB CONC 34 g/dL (32-36); MEAN CORPUSCULAR VOLUME 92 fL (80-99); MEAN PLATELET VOLUME 12.1 fL (9.0-12.2); MONOCYTES # (AUTO) 0.7 10^3/uL (0.0-1.0); MONOCYTES % (AUTO) 7 % (0-12); NEUTROPHILS # (AUTO) 7.2 10^3/uL (1.8-7.8); NEUTROPHILS % (AUTO) 67 % (42-75); PLATELET COUNT 205 10^3/uL (130-400); WHITE BLOOD COUNT 10.8 10^3/uL (4.3-11.0)
[2022-06-14 08:54] VITALS: BP 100/64
--- NOTE | 2022-06-14 11:52 | Anesthesia-Regional Post-Op ---
Regional Patient Condition Mental Status: Alert, Oriented x3 Circulation: Same as Pre-Op Headache: Absent Sensation: Full Recovery Motor Block: Absent Post Op Complications Complications None Follow Up Care/Instructions Patient Instructions None needed. Anesthesia/Patient Condition Patient is doing well, no complaints, stable vital signs, no apparent adverse anesthesia problems. No complications reported per nursing. ALEJANDRO PATEL CRNA Jun 14, 2022 11:52
[2022-06-14] MEDS: DOCUSATE SODIUM 100 MG (COLACE) CAP PO SCH (12:08)
--- NOTE | 2022-06-14 16:57 | Discharge Inst-Women's Service ---
Discharge Inst-Women's Serv Depart Medication/Instructions New, Converted or Re-Newed RX: Other Instructions May take [id number] ibuprofen 200 mg tablets and take 2 or 3 every 6 hours if needed for cramps or pain. Problems Reviewed?: Yes Consults/Follow Up Additional Follow Up: Yes (with [facility] in 6 weeks) Activity Driving Instructions: No Driving for 1 Week Nothing Inside Vagina: No [place] (For 6 weeks) Diet Discharge Diet: Regular Diet Return to The Hospital For: As below Symptoms to Report to : Swelling Increased, Bleeding Excessive, Fever Over 101 Degrees F, Vaginal Discharge Foul For Any Problems or Questions: Contact Your Physician DIMITRI ELLIOTT MD Jun 14, 2022 16:57
--- NOTE | 2022-06-14 17:01 | Discharge Summary ---
Diagnosis/Chief Complaint Date of Admission Jun 13, 2022 at 06:43 Date of Discharge June 14, 2022 Admission Diagnosis Admission Diagnosis 1. Intrauterine at term 39 weeks Discharge Diagnosis 1. Intrauterine at term 39 weeks Chief Complaint/HPI Chief Complaint/HPI 27-year-old 2 now [id number] who initially presented to labor and delivery with uterine contractions during the morning of June 13, 2022. Her EDC was noted to be June 17, 2022 her GBS status at 36 weeks was noted to be negative. Discharge Summary-OBS Procedures 1. Epidural per anesthesia 2. Spontaneous vaginal delivery 3. Repair of midline episiotomy Discharge Physical Examination Allergies: Coded Allergies: No Known Drug Allergies (Unverified , 11/07/21) Vitals & I&Os Intake and Output 06/14/22 00:00 Intake Total 1700 ml Balance 1700 ml Vital Sign - Last 12Hours Date Time Temp Pulse Resp B/P (MAP) Pulse Ox O2 Delivery O2 Flow Rate FiO2 06/14/22 08:54 36.3 79 18 100/64 (76) 98 Room Air General Appearance: Alert, Oriented X3 Respiratory: Clear to Auscultation Cardiovascular: Regular Rate Abdominal: Soft (With uterus firm) Hospital Course Was the Problem List Reviewed?: Yes Patient was admitted during the morning of June 13, 2022 in active labor. She underwent amniotomy with placement of scalp electrode with clear fluid noted. She remained reactive with regards to strip. She received epidural per anesthesia and tolerated well. She required low-dose Pitocin augmentation taking to a max of 4 milliunits. Ultimately she went on to completion and delivered over a midline episiotomy a term viable female. Delivery was accomplished at 1559. Infant received Apgars of 8 at 1 minute and 9 at 5 minutes. Following delivery patient underwent routine care orders. She had no complications during the remainder of hospital stay. Her hemoglobin the morning after delivery was 10.1 and this was compared to 13.0 on admission. She was asymptomatic with regard to any dizziness or lightheadedness. She had tolerated a regular diet and was ambulatory. She was felt ready for dismissal during the evening of June 14, 2022. She will follow up with myself in 6 weeks at [facility]. Labs Laboratory Tests 06/14/22 06:20: White Blood Count 10.8, Red Blood Count 3.28L, Hemoglobin 10.1#L, Hematocrit 30L , Mean Corpuscular Volume 92, Mean Corpuscular Hemoglobin 31, Mean Corpuscular Hemoglobin Concent 34, Red Cell Distribution Width 14.4, Platelet Count 205, Mean Platelet Volume 12.1, Immature Granulocyte % (Auto) 0, Neutrophils (%) (Auto) 67, Lymphocytes (%) (Auto) 25, Monocytes (%) (Auto) 7, Eosinophils (%) (Auto) 0, Basophils (%) (Auto) 0, Neutrophils # (Auto) 7.2, Lymphocytes # (Auto) 2.7, Monocytes # (Auto) 0.7, Eosinophils # (Auto) 0.0, Basophils # (Auto) 0.0, Immature Granulocyte # (Auto) 0.0 Discharge Instructions to patient/family Please see electronic discharge instructions given to patient. Discharge Medications Reviewed and agree with Discharge Medication list on patient's Discharge Instruction sheet DIMITRI ELLIOTT MD Jun 14, 2022 17:01
== END 2022-06-14 20:40 | disposition home or self-care (01) | DRG 807 ==
LOC: WSo 06:04 → LDRP 06:05 → WSo 06:43 → LDRP 18:20
PROVIDERS: ADMIT Family Medicine; ATTEND Family Medicine
PROC: 10E0XZZ Delivery of Products of Conception, External Approach (ICD-10-PCS; principal; 2022-06-13)
PROC: 0W8NXZZ Division of Female Perineum, External Approach (ICD-10-PCS; 2022-06-13)
PROC: 10907ZC Drainage of Amniotic Fluid, Therapeutic from Products of Conception, Via Natural or Artificial Opening (ICD-10-PCS; 2022-06-13)
PROC: 10H073Z Insertion of Monitoring Electrode into Products of Conception, Via Natural or Artificial Opening (ICD-10-PCS; 2022-06-13)
DX: O80 Encounter for full-term uncomplicated delivery (principal); Z37.0 Single live birth; Z3A.39 39 weeks gestation of pregnancy
CPT/HCPCS: 36415; 81000; 85025; 86780; 86850; 86900; 86901; 99212